=== PATIENT | female | born 1995 | race Caucasian/White ===

== ENCOUNTER 2016-09-06 06:56 | Emergency (ER) | payer OTHER ==
[2016-09-06] MEDS ORDERED: NS 1,000 ML IV ONE (07:11)
--- NOTE | 2016-09-06 07:12 | EDPHY ---
H & P Stated Complaint: n/v/d abd pain HPI/ROS: CHIEF COMPLAINT: N/V/D HISTORY OF PRESENT ILLNESS: The patient is a 20 y/o female complaining of constant vomiting and diarrhea for the last 36 hours. She has associated abdominal cramping that is worse on the right side. She states cannot keep any food or water down. She had a possible fever yesterday. She denies urinary complaints, bloody emesis or stool, chest pain, shortness of breath, or other symptoms. Her rehabilitation aide/scheduler at bedside had the "stomach flu" last week. No recent traveling, bad food, or drinking [place]. She had a prior episode of ileitis a couple years ago that resolved completely; her symptoms today do not feel similar to that episode. She is otherwise healthy. REVIEW OF SYSTEMS: A ten point review of systems was performed and is negative with the exception of the items mentioned in the HPI. Constitutional: see HPI Eyes: No eye redness, no eye pain, no change in vision ENT: No sore throat, no earache Cardiovascular: No chest pain, no palpitations Abdominal: see HPI Respiratory: No cough, no shortness of breath Genitourinary: No dysuria, No hematuria, [no urgency, no frequency Musculoskeletal: No back pain, no neck pain, no joint pain, no joint swelling, Skin: No rashes. Neurological: No headache, no new numbness, no new weakness, no difficulty with speech, no changes in memory - Personal History LMP (Females 10-55): 22-28 Days Ago Current Tetanus/Diphtheria Vaccine: Yes - Medical/Surgical History PMH: PMH includes: 1. Depression 2. 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 - Physical Exam Exam: General Appearance: Alert. Vital signs reviewed. Tearful and uncomfortable- appearing. HR 125 at triage. Eyes: Pupils equal and round, no conjunctival injection, no discharge. Anicteric. ENT, Mouth: Mucous membranes are moist, no oropharyngeal erythema or edema. Neck: No lymphadenopathy, supple. Respiratory: Lungs are clear to auscultation; no wheezes, rales, or rhonchi. Cardiovascular: Tachycardic; no murmur, rub, or gallop. Gastrointestinal: Abdomen is soft, tenderness to RLQ, no guarding, no masses or organomegaly, bowel sounds normal. Skin: Warm and dry, no rashes on exposed skin, normal color. Back: Nontender to palpation over the thoracolumbar spine. No CVAT. Extremities: No lower extremity edema, no calf tenderness or swelling. Neurological: Alert and oriented. Moving all four extremities easily and equally. Psychiatric: Anxious Constitutional: Initial Vital Signs Temperature (C) 37.8 C 09/06/16 07:01 Heart Rate 125 H 09/06/16 07:01 Respiratory Rate 20 09/06/16 07:01 Blood Pressure 101/74 09/06/16 07:01 O2 Sat (%) 95 09/06/16 07:01 O2 Delivery Mode Room Air Allergies/Adverse Reactions: No Known Allergies Allergy (Unverified 09/06/16 07:00) Home Medications: Medication Instructions Recorded Escitalopram Oxalate 09/06/16 Immodium 09/06/16 Promethazine HCl [Phenergan 12.5mg 12.5 mg PO Q6HRS PRN #10 tablet 09/06/16 tab] Trinessa Tablet 09/06/16 Medical Decision Making - Diagnostics Imaging: Discussed imaging studies w/ caterers helper Radiologist, I viewed and interpreted images myself ED Course/Re-evaluation: This is a normally healthy 20 y/o female who presents with a 36-hour history of persistent vomiting and diarrhea. She appears uncomfortable and has generalized abdominal pain tenderness in RLQ on exam. Plan for IV, labs, UA, stool sample, abdominal CT, and symptom management. 5mg IV ketamine, 4mg IV Zofran, and 1L IV NS administered. Abdominal CT is negative for appendicitis, but does show signs of inflammation ( proctitis). Reassessed patient and discussed results with the patient. She is feeling improved after medication, though continues to have some pain. She saw a GI and had a colonoscopy a few years ago while [place] and was diagnosed with ileitis and was also told she could have Crohn's. She has not seen a GI doctor since then. Additional 5mg IV Ketamine administered. There is a possibility of Crohn's with her history, however, this could also be a viral or bacterial gastroenteritis/enteritis. I do not suspect perforated viscus or diverticulitis. Stool labs pending. Symptoms improved after IVF, zofran, and ketamine. Abdomen soft and mildly tender RLQ. No peritoneal signs, not a surgical abdoment. She has been rehydrated. Patient will be discharged home with standard N/V/D instructions and recommendation to use Loperamide and Phenergan as needed. She understands she must follow up with GI. Return precautions given. - Data Points Laboratory Results: Laboratory Results 09/06/16 07:10 09/06/16 07:10 Medications Given: Discontinued Medications Sodium Chloride (Ns) 1,000 mls @ 0 mls/hr IV ONCE ONE; Wide Open PRN Reason: Protocol Stop: 09/06/16 07:12 Last Admin: 09/06/16 07:14 Dose: 1,000 mls Ketamine HCl (Ketamine) 5 mg IVP EDNOW ONE Stop: 09/06/16 07:17 Last Admin: 09/06/16 07:28 Dose: 5 mg Ketamine HCl (Ketamine) 5 mg IVP EDNOW ONE Stop: 09/06/16 09:36 Last Admin: 09/06/16 10:04 Dose: 5 mg Ondansetron HCl (Zofran) 4 mg IVP EDNOW ONE Stop: 09/06/16 07:18 Last Admin: 09/06/16 07:28 Dose: 4 mg Departure - Departure Disposition: Home, Routine, Self-Care Clinical Impression: Nausea vomiting and diarrhea, Dehydration, Gastroenteritis Abdominal pain Qualifiers: Abdominal location: right lower quadrant Qualified Code(s): R10.31 - Right lower quadrant pain Condition: Good Instructions: Dehydration (ED), Gastroenteritis (ED), Acute Nausea and Vomiting (ED), Acute Diarrhea (ED), Abdominal Pain (ED) Additional Instructions: 1. Use loperamide (Imodium) as directed on the packaging for diarrhea. 2. Increase fluid intake. 3. Follow up with GI without fail within 1 week. 4. Return to the ED for worsening of condition. Referrals: KEMI TAYLOR MD [Other] - As per Instructions Mahamed Rodriguez MD, FACG [Medical Doctor] - As per Instructions Stand Alone Forms: Airline Excuse Prescriptions: Promethazine HCl [Phenergan 12.5mg tab] 12.5 mg PO Q6HRS PRN #10 tablet PRN Reason: Nausea/Vomiting, Can'T Take Po Report Scribed for: Gisela Polo Report Scribed by: Abby Beaulieu Date of Report: 09/06/16 Time of Report: 07:20 Physician Review and Approval Statement: 09/12/16 08:29 Portions of this chart were entered by a medical science liaison. I personally performed the HPI, MDM, PE. I have reviewed the documentation and agree with the chart as written.
[2016-09-06] MEDS ORDERED: KETAMINE 100 MG/10 ML SYR IVP ONE ×2 (07:16→09:35)
[2016-09-06] MEDS ORDERED: ONDANSETRON 4 MG/2 ML VIAL IVP ONE (07:17)
[2016-09-06 07:22] LABS: % IMMATURE GRANULYOCYTES 0.4 % (0.0-1.1); ABSOLUTE IMMATURE GRANULOCYTES 0.05 10^3/uL (0.00-0.10); ADD DIFF? NO; ADD MORPH? NO; ADD SCAN? NO; ATYPICAL LYMPHOCYTE FLAG 0 (0-99); FRAGMENT RBC FLAG 0 (0-99); HEMATOCRIT 42.8 % (38.0-47.0); HEMOGLOBIN 14.9 g/dL (12.6-16.3); LEFT SHIFT FLG 10 (0-99); LIPEMIA HEMOLYSIS FLAG 90 (0-99); MEAN CELL HEMOGLOBIN 29.6 pg (27.9-34.1); MEAN CELL HEMOGLOBIN CONCENTR. 34.8 g/dL (32.4-36.7); MEAN CELL VOLUME 84.9 fL (81.5-99.8); MEAN PLATELET VOLUME 10.2 fL (8.7-11.7); PLATELET CLUMPS FLAG 20 (0-99); PLATELET COUNT 230 10^3/uL (150-400); RED BLOOD CELL COUNT 5.04 10^6/uL (4.18-5.33); RED CELL DISTRIBUTION WIDTH 12.4 % (11.5-15.2)
[2016-09-06 07:34] LABS: ANION GAP 16 mEq/L (8-16); CALCIUM 9.1 mg/dL (8.5-10.4); CARBON DIOXIDE 14 mEq/l (22-31); CHLORIDE 103 mEq/L (97-110); CREATININE 0.9 mg/dL (0.6-1.0); GLOMERULAR FILTRATION RATE > 60; GLUCOSE 120 mg/dL (70-100); POTASSIUM 3.5 mEq/L (3.5-5.2); SODIUM 133 mEq/L (134-144)
[2016-09-06] MEDS ORDERED: IOPAMIDOL (ISOVUE-300) 100 ML BTL ONE (08:20)
[2016-09-06 09:04] LABS: COLOR PALE YELLOW; LEUKOCYTE ESTERASE,URINE NEGATIVE (NEGATIVE); NITRITE,URINE NEGATIVE (NEGATIVE)
[2016-09-06 10:48] VITALS: TEMP 98.4; O2SAT 94
[2016-09-06 13:03] VITALS: BP 120/74; PULSE 97; RESP 14
== END 2016-09-06 13:03 | disposition home or self-care (01) ==
DX: K52.9 Noninfective gastroenteritis and colitis, unspecified (principal); E86.0 Dehydration
CPT/HCPCS: 96374; J1200; J2405; Q9967